=== PATIENT | female | born 1945 | race Caucasian/White ===

== ENCOUNTER 2016-10-30 14:25 | Emergency (ER) | payer MEDICARE ==
[~2016-10-30] VITALS: Ht 160 cm; Wt 59.1 kg
[~2016-10-30 14:25] MED LIST: CALC-766 PO; ESTR1PAT TD; LORA0.5T PO; MEDR2.5T7 PO; MULT-621 PO; OMEG300C3 PO
[2016-10-30 14:26] VITALS: BP 144/94; PULSE 95; RESP 17; O2SAT 97
--- NOTE | 2016-10-30 14:37 | ED.REPORT ---
HPI-General Illness Date of Service Oct 30, 2016 ED Provider: Bill Parada DO Pt is a 71 year old female with anxiety, current H. pylori infection, and an estrogen patch who presents to the ED complaining of intermittent rapid heart palpitations onset 3 days ago. Pt c/o associated hot and cold flashes, diaphoresis, and 1 pre-syncopal episode. She also reports hearing her heart beat during each hot-cold flash episode. Pt denies fever, vomiting, diarrhea, cough with sputum, chest pain, SOB, dysuria. She takes antibiotics (Amoxicillin and Clarithromycin) for the H. Pylori infection and takes 0.5 mg Lorazepam for anxiety. She does not that she has been trying to taper down her Lorazepam use for the past 2 days although this began after the onset of her palpitations The hot-cold flash episodes last 5-20 minutes, and are mildly relieved with walking. The pt reports that the the episode over occurred 7x today since 03:00 this morning. She denies experiencing recent pneumonia. She denies having a previous stress test. She reported that she monitored her heart rate in it was at 100 bpm when the symptoms occurred. Nursing Notes Stated Complaint: FAST HEART RATE, SWEATY Chief Complaint: Dysrhythmia/Cardiac Nursing Notes Reviewed: Yes Allergies: Coded Allergies: fluoxetine (Verified Adverse Reaction, Intermediate, SSRI'S in general cause opposite effect, 10/30/16) Scheduled Amoxicillin (Amoxicillin) 500 Mg Capsule 1,000 MG PO BID Clarithromycin (Clarithromycin) 500 Mg Tablet 500 MG PO BID Estradiol 0.05 mg/24 hr Patch (Estradiol 0.05 mg/24 hr Patch) 1 Each Patch.tdwk 0.25 PATCH TRANSDERM WEEKLY Multivitamin with Minerals (Myvitalife) 1 Each Capsule 1 EACH PO DAILY Custer-3 Fatty Acids (Fish Oil) 300 Mg Capsule 300 MG PO DAILY Omeprazole (Omeprazole) 20 Mg Capsule.dr 20 MG PO BID Scheduled PRN Lorazepam (Lorazepam) 0.5 Mg Tablet 0.5 MG PO TID PRN PRN For Anxiety General Time Seen by MD: 14:35 Chief Complaint Other (Dysrhythmia) Hx Obtained From: Patient Arrived By: Walk-in Sudden in Onset?: No Onset Occurred: 3 days ago Symptom Duration: Intermittent Location: : Abdomen Quality: Painful Severity: Current: Moderate Severity: Maximum: Moderate Recent Healthcare: Recent doctor visit Similar Sx Previous: No Past Medical History Past Medical History anxiety H. pylori infection Osteoarthritis Gastroesophageal relux Denies: Congestive heart failure, Diabetes mellitus, Hypertension Past Surgical History denies Smoking History Never Smoker Social History Alcohol Use: Denies alcohol use Other Social History: Good social support, , Local resident Ambulatory Status Independent Review of Systems + Hot and cold flashes + 1 pre-syncopal episode Full Review of Systems Constitutional: Denies: Fever Respiratory: Denies: Prod cough, clear, Shortness of breath Cardiovascular: Reports: Palpitations, Denies: Chest pain GI: Reports: Abdominal pain, Denies: Diarrhea, Vomiting Female: Denies: Dysuria Skin: Reports Diaphoresis Neurologic: Reports: Lightheaded Complete sys rev & neg: except as marked. Physical Exam Vital Signs Vital Signs Date Time Temp Pulse Resp B/P Pulse Ox O2 Delivery O2 Flow Rate FiO2 10/30/16 14:26 36.7 95 17 144/94 97 Room Air Initial VS: Reviewed Head / Eyes: Atraumatic, Normocephalic, PERRL ENT: Mucous membranes moist, Conjunctiva normal, No scleral icterus Neck: Supple, Full range of motion Respiratory: Breath sounds normal, Clear to auscultation, No respiratory distress Cardiovascular: Regular rate & rhythm, Heart sounds normal, Intact distal pulses Extremities: Vascular intact, Neuro intact Skin: Warm, Dry, No cyanosis Neurologic: Alert, Oriented, Nonfocal Psychiatric: Mood/affect normal, Behavior normal General/Constitutional: Awake, Alert, Cooperative, Not toxic appearing Abdomen: Atraumatic, Soft, No guarding, No rebound Mild tenderness to palpation on left side Interpretation & Diagnostics Lab Results Interpretation Result Diagram: 10/30/16 1445 10/30/16 1445 Test 10/30/16 14:45 White Blood Count 6.3th/mm3 (3.8-10.1) Red Blood Count 4.81mil/mm3 (3.90-5.20) Hemoglobin 14.5g/dL (12.0-15.6) Hematocrit 42.8% (35.0-46.0) Mean Corpuscular Volume 89.0fL (81-100) Mean Corpuscular Hemoglobin 30.1pg (27.0-35.0) Mean Corpuscular Hemoglobin Concent 33.9% (32.0-37.0) Red Cell Distribution Width 13.7% (12.3-15.4) Platelet Count 246bil/L (150-400) Neutrophils (%) (Auto) 73.5% (40-74) Lymphocytes (%) (Auto) 17.3% (14-46) Monocytes (%) (Auto) 7.8% (4-12) Eosinophils (%) (Auto) 1.0% (0-5) Basophils (%) (Auto) 0.2% (0-3) D-Dimer < 0.50mg/L FEU (<0.50) Sodium Level 138mEq/L (134-144) Potassium Level 3.7mEq/L (3.5-5.2) Chloride Level 99mEq/L (97-108) Carbon Dioxide Level 25mmol/L (18-29) Blood Urea Nitrogen 16mg/dL (8-27) Creatinine 0.71mg/dL (0.57-1.00) Estimat Glomerular Filtration Rate 116mL/min (>59) Glucose Level 115mg/dL (60-99) Calcium Level 9.4mg/dL (8.5-10.1) Magnesium Level 2.2mg/dL (1.6-2.6) Total Bilirubin 0.4mg/dL (0.0-1.2) Aspartate Amino Transf (AST/SGOT) 30U/L (0-50) Alanine Aminotransferase (ALT/SGPT) 23U/L (0-32) Alkaline Phosphatase 55U/L (25-165) Troponin T < 0.010ug/L (0.0-0.011) Total Protein 7.7g/dL (6.4-8.4) Albumin 4.1g/dL (3.4-5.0) Hold [place] Top Tube Received (Received) ECG Interpretation ECG Interpretation: Sinus rhythm with a rate of 78 Time: 14:35 Interpreted by: ED physician Normal ECG Interpretation: No acute ischemic changes X-Ray Chest Interpretation Chest Xray Interpretation: IMPRESSION: Small irregular right basilar density may represent atelectasis or scarring. An early developing pneumonia is difficult to exclude. Dictated by: Rickey Cruz M.D. on 10/30/2016 at 13:52 View: Portable, 1 view Interpretation / Wet Read by: Interpret - Radiologist Re-Eval/Medical Decision Med Decision/Clinical Course Patient presents after having had self-limited episodes of tachycardia, without ischemic sounding chest pain. She is generally otherwise healthy, does not sound like acute coronary syndrome, her d-dimer, troponin, electrolytes are normal. She has been asymptomatic while in the ER. After a long discussion we strongly encourage her to follow closely with her primary care for further outpatient evaluation and follow-up for probable Holter, echocardiogram, stress test. Strict return precautions given Source of Hx: Old records Counseled Regarding: Diagnosis, Lab results, Need for follow-up, When/why to return to ED Discharge & Departure Primary Impression: Palpitation Disposition: Home Discharge Condition All VS Reviewed: Yes Condition: Stable Patient Instructions: Palpitations (ED) Additional Instructions: Your story is concerning for a tachydysrhythmia. I strongly encourage you to take a baby aspirin daily, call your primary care today for close outpatient follow-up which may include outpatient Holter monitor, echocardiogram, or stress test. Call 911 and immediately return to the ER if you develop palpitations lasting for more than 10 minutes, a syncopal episode, chest pain or severe shortness of breath, or any other concerns. Referrals: Marques López MD (PCP) Scribe Attestation Portions of this note were transcribed by Beau Banuelos and Alicia Lyn. I, Dr. Parada personally performed the history, physical exam and medical decision-making; I reviewed and confirmed the accuracy of the information in the transcribed note. Signed by: Beau Banuelos and Tina Huntley, 10/30/16 and 15:50 copies to: Marques López MD, Timothy Tracy NGUYEN Oct 30, 2016 14:37 Alicia Shine Oct 30, 2016 14:46 BEAU BANUELOS Oct 30, 2016 16:05
[2016-10-30] MEDS ORDERED: OMEP20CA11 PO (14:38)
[2016-10-30] MEDS ORDERED: CLAR500T PO (14:38)
[2016-10-30] MEDS ORDERED: AMOX500C2 PO (14:38)
[2016-10-30] MEDS ORDERED: LidocaineVisc 2%:Antacid 1:1 10 mL Syringe PO ONE (14:50)
[2016-10-30] MEDS ORDERED: LORazepam 0.5 mg Tablet PO ONE (14:50)
[2016-10-30 14:56] LABS: BASOPHILS % (AUTO) 0.2 % (0-3); MONOCYTES % (AUTO) 7.8 % (4-12); Mean Corpuscular Hemoglobin 30.1 pg (27.0-35.0); NEUTROPHILS % (AUTO) 73.5 % (40-74); Platelet Count 246 bil/L (150-400)
--- NOTE | 2016-10-30 14:56 | DRSVH ---
PROCEDURE: X-RAY CHEST ONE VIEW, PORTABLE ([id number]) INDICATIONS: CHEST PAIN TECHNIQUE: One view of the chest was acquired. COMPARISON: [facility] [place], [place], CHEST 2VW, 04/08/2007, 14:26. FINDINGS: Surgical changes and devices: None. Lungs and pleura: Vague density at the right lung base is noted. There is no lobar consolidation, ef fusion, or pneumothorax. There is scarring within the lung apices. Mediastinum: Mediastinal contours appear normal. Heart size is normal. There is aortic atheroscler osis. Bones and chest wall: No suspicious bony lesions. The bone mineralization is diffusely decreased. There are degenerative changes of the imaged spine. Moderate thoracic dextroscoliosis is noted. Ove rlying soft tissues appear unremarkable. IMPRESSION: Small irregular right basilar density may represent atelectasis or scarring. An early developing pne umonia is difficult to exclude. Dictated by: Rickey Cruz M.D. on 10/30/2016 at 13:52 Approved by: Rickey Cruz M.D. on 10/30/2016 at 13:54
[2016-10-30] MEDS ORDERED: MULT1CAP45 PO (15:18)
[2016-10-30] MEDS ORDERED: ESTR1PAT81 TRANSDERM (15:18)
[2016-10-30 15:21] LABS: TROPONIN T < 0.010 ug/L (0.0-0.011)
[2016-10-30 15:29] LABS: Magnesium 2.2 mg/dL (1.6-2.6)
[2016-10-30 16:10] VITALS: BP 142/82; PULSE 74; RESP 13; O2SAT 96
[2016-10-30 16:36] VITALS: BP 142/82; PULSE 74; RESP 13; O2SAT 96
== END 2016-10-30 16:37 | disposition home or self-care (01) ==
LOC: SED 14:25
DX: R00.2 Palpitations (principal); Z88.8 Allergy status to other drugs, medicaments and biological substances

== ENCOUNTER 2016-12-12 10:40 | Day surgery (SDC) | payer MEDICARE ==
[~2016-12-12] VITALS: Ht 160 cm; Wt 56.7 kg
[~2016-12-12 10:40] MED LIST changes: +0.9% Sodium Chloride 1,000 ML IV SCH; +CALC-140 PO; -CALC-766 PO; +DIPH25CA6 PO; -ESTR1PAT TD; +LVCR25100 PO; -MEDR2.5T7 PO; -MULT-621 PO; +MULT1CAP45 PO; +OMEP20CA11 PO; +Sodium Chloride LOK Flush 10 mL Syringe IV PRN; +fentaNYL-PF 50 mCg/mL 2 mL Inj IVPUSH PRN
[2016-12-12 10:53] VITALS: BP 142/89; PULSE 85; RESP 16; O2SAT 97
[2016-12-12 11:23] VITALS: BP 134/74; PULSE 75; RESP 12; O2SAT 98
[2016-12-12 11:33] VITALS: BP 123/70; PULSE 68; RESP 16; O2SAT 95
[2016-12-12 11:43] VITALS: BP 145/77; PULSE 73; RESP 16; O2SAT 96
--- NOTE | 2016-12-12 13:19 | ENDO ---
[address] [address] ENDOSCOPY PROCEDURE PATIENT: SIMONE BARNES : 1945 MR#: [id number] ADMIT: 12/12/2016 JOB ID: [id number] DATE OF SERVICE: 12/12/2016 TYPE OF OPERATION: Esophagogastroduodenoscopy with biopsy. PREOPERATIVE DIAGNOSIS(ES): Epigastric pain. POSTOPERATIVE DIAGNOSIS(ES): Normal upper endoscopy, status post biopsy. ANESTHESIA: Fentanyl 75 mcg and Versed 4 mg IV administered. COMPLICATIONS: None. BLOOD LOSS: Minimal. DESCRIPTION OF PROCEDURE: After risks and benefits explained to the patient, informed consent was obtained. After anesthesia administered, upper endoscope was then inserted into mouth intubating into the esophagus, stomach, second portion of duodenum. Mucosa carefully examined. After procedure was done, the scope withdrawn and the procedure terminated. FINDINGS: Upon inspection of the esophagus, the esophagus was normal without masses, ulcers, or lesions. Z-line located 40 cm from incisors. Upon entering stomach, stomach was also normal without masses, ulcers, or lesions. Retroflexion was normal. Duodenal bulb, first and second portions normal. Biopsies taken of antrum and body of the stomach. IMPRESSION: Normal upper endoscopy, status post biopsy. RECOMMENDATION: Await pathology results. Follow up in GI Clinic as needed.
--- NOTE | 2016-12-15 11:58 | PATH ---
SURGICAL PATHOLOGY Attending Physician:Adi Chavarria MD CASE STATUS: Signed Out PATIENT NAME: SIMONE BARNES PID: [id number] : 1945 DATE COLLECTED:12/12/2016 20:09 SPECIMEN: 1: Stomach, Antrum, Biopsy 2: Gastric, Biopsy CLINICAL HISTORY: 1). ANTRUM BIOPSY 2). GASTRIC BODY BIOPSY (RULE OUT H.PYLORI) FINAL DIAGNOSIS: 1.ANTRUM BIOPSY: FRAGMENTS OF NORMAL-APPEARING ANTRAL MUCOSA. Negative for significant inflammation. Negative for evidence of Helicobacter on H&E stain. Negative for intestinal metaplasia. Negative for dysplasia and malignancy. 2.GASTRIC BODY BIOPSY: MUCOSAL HYPEREMIA WITHOUT ASSOCIATED SIGNIFICANT INFLAMMATION INVOLVING FUNDIC MUCOSA. Negative for evidence of Helicobacter on H&E stain. Negative for intestinal metaplasia. Negative for dysplasia and malignancy. ICD10 R10.13 GROSS DESCRIPTION: Received are two formalin-filled containers, both labeled with the patient' s name: 1. Received in formalin, labeled with the patient' s name and "antrum BX", are two fragments of velazquez, soft tissue ranging in size from 0.2 x 0.1 x 0.1 cm to 0.3 x 0.2 x 0.1 cm. All fragments are totally submitted in cassette 1A. 2. Received in formalin, labeled with the patient' s name and "gastric body biopsies", are two fragments of velazquez, soft tissue ranging in size from 0.2 x 0.1 x 0.1 cm to 0.3 x 0.2 x 0.1 cm. All fragments are totally submitted in cassette 2A. ([id number]) MICRO DESCRIPTION: See diagnosis. ICD-9 CODES: CPT CODES: 1: 34348 2: 96518 Electronically Signed Out Theodore Malhotra MD [facility] [address], [place] [address] Technical component performed at [facility], [facility] [address], [place], [address]
== END 2016-12-12 23:59 | disposition home or self-care (01) ==
LOC: END 10:40
PROVIDERS: ATTEND Internal Medicine Gastroenterology
DX: R10.13 Epigastric pain (principal); Z86.19 Personal history of other infectious and parasitic diseases; G20 Parkinson's disease; F41.9 Anxiety disorder, unspecified
CPT/HCPCS: 43239; G0500; J2250; J3010; J7030